=== PATIENT | female | born 1965 | race Two or more races ===

== ENCOUNTER 2025-04-24 23:16 | Emergency (ER) | payer BC ==
[~2025-04-24] VITALS: Ht 165.1 cm; Wt 72.6 kg
[2025-04-24] MEDS ORDERED: ZOLOFT50 MG PO (23:36)
[2025-04-24] MEDS ORDERED: XANAX XR0.5 MG PO (23:37)
[2025-04-25 02:19] LABS: BASO % 0.3 % (0.1-1.2); EOS # 0.17 (0.04-0.54); EOS % 2.5 % (0.7-7.0); LYMPH # 2.63 (1.18-3.74); LYMPH % 38.6 % (19.3-53.1); MEAN PLATELET VOLUME 10.40 fl (9.4-12.4); MONO # 0.44 (0.24-0.82); MONO % 6.5 % (4.7-12.5); NEUT # 3.52 (1.56-6.13); NEUT % 51.7 % (34.0-71.1); RED CELL DISTRIBUTION WIDTH 12.6 % (11.6-14.4)
[2025-04-25 02:36] LABS: ALT/SGPT 29.0 U/L (12-78); AST/SGOT 23.0 U/L (15-37); BILIRUBIN TOTAL 0.58 mg/dL (0.3-1.2); BUN CREA RATIO 21.0 (7.0-25.0); CREATININE SERUM 0.63 mg/dL (0.55-1.02); GFR 96.39; GLOBULINA 2.8 G/DL (2.4-3.5); GLUCOSE FASTING 106.0 mg/dL (65-100); OSMOLALITY SERUM 286.0 MOSM/KG (275-295)
[2025-04-25 07:52] VITALS: BP 125/80; O2SAT 100
== END 2025-04-25 07:52 ==
LOC: ER 23:16
PROVIDERS: General Practice
DX: R07.89 Other chest pain (principal); I51.9 Heart disease, unspecified; Z88.0 Allergy status to penicillin